=== PATIENT | female | born 1975 | race American Indian/Alaskan Native ===

== ENCOUNTER 2020-04-02 08:56 | Emergency (ER) | payer SELFPAY ==
--- NOTE | 2020-04-02 10:32 | Emergency Department Report ---
ED General Adult HPI - General Chief complaint: Skin/Abscess/Foreign Body Stated complaint: KNOT ON BOTTOM Time Seen by Provider: 04/02/20 10:00 Source: patient Mode of arrival: Ambulatory Limitations: No Limitations - History of Present Illness Initial comments: Patient is a 44-year-old female presents emergency room with complaints of constipation that began 3 days ago. She states that she has been straining to have a bowel movement. She states that today she noticed a lump present to her rectum. She states that when she wiped she saw a small amount of bright red blood. She denies any fever, vomiting, diarrhea, urinary symptoms, hematochezia, hematemesis, abd pain. She has a past medical history of diabetes. No allergies to medications. - Related Data Previous Rx's Medication Instructions Recorded Last Taken Type Clindamycin [Clindamycin CAP] 450 mg PO TID 7 Days #63 capsule 04/02/20 Unknown Rx Docusate Sodium [Colace] 100 mg PO BID PRN #20 capsule 04/02/20 Unknown Rx Hydrocortisone [Anucort-HC SUPPOS] 25 mg RC BID #10 supp.rect 04/02/20 Unknown Rx Hydrocortisone [Anusol-Hc 2.5% TOP 1 applicatio RC TID #1 cream..g. 04/02/20 Unknown Rx CREAM] Polyethylene Glycol 3350 [Miralax] 7 gm PO DAILY PRN #1 powder 04/02/20 Unknown Rx Allergies Allergy/AdvReac Type Severity Reaction Status Date / Time No Known Allergies Allergy Unverified 04/02/20 09:05 ED Review of Systems ROS: Stated complaint: KNOT ON BOTTOM Other details as noted in HPI Comment: All other systems reviewed and negative ED Past Medical Hx - Past Medical History Previous Medical History?: Yes Hx Diabetes: Yes - Surgical History Past Surgical History?: Yes Additional Surgical History: Breast surgery. Hysterectomy - Social History Smoking Status: Never Smoker Substance Use Type: None - Medications Home Medications: Home Medications Medication Instructions Recorded Confirmed Last Taken Type Clindamycin [Clindamycin CAP] 450 mg PO TID 7 Days #63 capsule 04/02/20 Unknown Rx Docusate Sodium [Colace] 100 mg PO BID PRN #20 capsule 04/02/20 Unknown Rx Hydrocortisone [Anucort-HC SUPPOS] 25 mg RC BID #10 supp.rect 04/02/20 Unknown Rx Hydrocortisone [Anusol-Hc 2.5% TOP 1 applicatio RC TID #1 cream..g. 04/02/20 Unknown Rx CREAM] Polyethylene Glycol 3350 [Miralax] 7 gm PO DAILY PRN #1 powder 04/02/20 Unknown Rx ED Physical Exam - General Limitations: No Limitations General appearance: alert, in no apparent distress - Head Head exam: Present: atraumatic, normocephalic - Eye Eye exam: Present: normal appearance - ENT ENT exam: Present: mucous membranes moist - Respiratory Respiratory exam: Absent: respiratory distress, accessory muscle use - Rectal Rectal exam: Present: other (tax adjuster: two external hemorrhoids present, one internal hemorrhoid present, brown stool, no gross blood, there is a small area of erythema of the gluteal cleft with mild edema but no fluctuance, no drainage, no involvement of the rectum or perineum, tax adjuster: nhung whatley ) - Neurological Exam Neurological exam: Present: alert, oriented X3 - Psychiatric Psychiatric exam: Present: normal affect, normal mood - Skin Skin exam: Present: warm, dry ED Course Vital Signs 04/02/20 04/02/20 04/02/20 09:00 10:44 11:01 Temperature 97.6 F 98.6 F Pulse Rate 118 H 113 H 107 H Respiratory 16 18 18 Rate Blood Pressure 127/85 Blood Pressure 122/80 [Right] O2 Sat by Pulse 98 98 Oximetry ED Medical Decision Making - Lab Data Vital Signs 04/02/20 04/02/20 04/02/20 09:00 10:44 11:01 Temperature 97.6 F 98.6 F Pulse Rate 118 H 113 H 107 H Respiratory 16 18 18 Rate Blood Pressure 127/85 Blood Pressure 122/80 [Right] O2 Sat by Pulse 98 98 Oximetry - Medical Decision Making Patient is a 44-year-old female presents emergency room with complaints of constipation that began 3 days ago. She states that she has been straining to have a bowel movement. She states that today she noticed a lump present to her rectum. She states that when she wiped she saw a small amount of bright red blood. She denies any fever, vomiting, diarrhea, urinary symptoms, hematochezia, hematemesis, abd pain. She has a past medical history of diabetes. No allergies to medications. Vitals with elevated heart rate which improved on repeat. On exam:tax adjuster: two external hemorrhoids present, one internal hemorrhoid present, brown stool, no gross blood, there is a small area of erythema of the gluteal cleft with mild edema but no fluctuance, no drainage, no involvement of the rectum or perineum, tax adjuster: nhung whatley. Examination appears consistent with hemorrhoids and possible mild early cellulitis. No signs of abscess at this time. Patient given prescription for Anusol, Colace, MiraLAX, clindamycin. Advised patient Please use medication as prescribed. Increase your water intake over the next several days. Eat a high- fiber diet. Follow-up with a primary care doctor in the next 2 days and have the area reexamined. Follow-up with a GI doctor. Return to emergency room for any new or worsening symptoms. Critical care attestation.: If time is entered above; I have spent that time in minutes in the direct care of this critically ill patient, excluding procedure time. ED Disposition Clinical Impression: Hemorrhoids Qualifiers: Hemorrhoid type: unspecified Qualified Code(s): K64.9 - Unspecified hemorrhoids Constipation Qualifiers: Constipation type: unspecified constipation type Qualified Code(s): K59.00 - Constipation, unspecified Cellulitis Qualifiers: Site of cellulitis: buttock Qualified Code(s): L03.317 - Cellulitis of buttock Disposition: - TO HOME OR SELFCARE Is pt being admited?: No Does the pt Need Aspirin: No Condition: Stable Instructions: Constipation (ED), Hemorrhoids (ED), Cellulitis (ED), High Fiber Diet (ED) Additional Instructions: Please use medication as prescribed. Increase your water intake over the next several days. Eat a high-fiber diet. Follow-up with a primary care doctor in the next 2 days and have the area reexamined. Follow-up with a GI doctor. Return to emergency room for any new or worsening symptoms. Prescriptions: Hydrocortisone [Anucort-HC SUPPOS] 25 mg RC BID #10 supp.rect Hydrocortisone [Anusol-Hc 2.5% TOP CREAM] 1 applicatio RC TID #1 cream..g. Clindamycin [Clindamycin CAP] 450 mg PO TID 7 Days #63 capsule Docusate Sodium [Colace] 100 mg PO BID PRN #20 capsule PRN Reason: constipation Polyethylene Glycol 3350 [Miralax] 7 gm PO DAILY PRN #1 powder PRN Reason: Constipation Referrals: [facility] [Provider Group] - 2-3 Days MILA HAWK MD [Staff Physician] - 2-3 Days [facility] [Provider Group] - 2-3 Days Time of Disposition: 10:34 Print Language: [id number]
[2020-04-02 10:45] VITALS: BP 122/80
== END 2020-04-02 11:02 | disposition home or self-care (01) ==
LOC: ED 08:56
DX: L03.317 Cellulitis of buttock (principal); K64.9 Unspecified hemorrhoids; K59.00 Constipation, unspecified; E11.9 Type 2 diabetes mellitus without complications; Z98.890 Other specified postprocedural states; Z90.710 Acquired absence of both cervix and uterus; Z79.899 Other long term (current) drug therapy